=== PATIENT | female | born 2000 | race African-American/Black ===

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

== ENCOUNTER 2023-11-16 10:12 | Day surgery (SDC) | payer BC, MEDICAID ==
[~2023-11-16] VITALS: Ht 160 cm; Wt 98.3 kg
[2023-11-16] VITALS (8 sets, daily range): BP systolic 123–146; BP diastolic 71–91; PULSE 100–110; TEMP 98–98.6
[2023-11-16] MEDS ORDERED: NEXPLANON68 MG ID (10:42)
[2023-11-16 11:08] LABS: HEMATOCRIT 42.3 % (37.0-47.0); HEMOGLOBIN 14.5 g/dl (12.5-16.0); MEAN CELL VOLUME 77 fl (80.0-100.0); MEAN CORPUSCULAR HEMOGLOBIN 26 pg (27-31); MEAN CORPUSCULAR HGB CONC 34 g/dl (33.0-37.0); MEAN PLATELET VOLUME 8.6 fl (7.4-10.4); PLATELET COUNT 379 K/mm3 (130-400); REDCELL DISTRIBUTION WIDTH-CV 12.5 % (11.5-14.5)
[2023-11-16 11:23] LABS: ALBUMIN 3.7 gm/dL (3.5-5.0); BILIRUBIN,TOTAL 0.5 mg/dL (0.2-1.2); CALCIUM 9.7 mg/dL (8.4-10.2); CREATININE, serum 0.82 mg/dL (0.57-1.11); POTASSIUM 3.9 mmol/L (3.5-4.5); TOTAL PROTEIN 7.7 gm/dL (6.2-8.1)
[2023-11-16] MEDS ORDERED: MOTRIN 600600 MG/TAB PO (13:50)
[2023-11-16] MEDS ORDERED: NORCO 325 MG-51 TAB PO (13:50)
--- NOTE | 2023-11-16 17:12 | NUR ---
1442: REPORT RECEIVED FROM [employer]INE [employer]. PATIENT TO BAY 7 PER CART FROM PACU. VS OBTAINED AND STABLE. 5 INCISIONS NOTED TO ABD. INCISIONS ARE C/D/I. NO DRAINAGE NOTED. PATIENT ALERT AND ORIENTED. PATIENT STATED THAT PAIN IS TOLERABLE AT 3/10. NO C/O NAUSEA. ICE CHIPS GIVEN AT THIS TIME. WARM BLANKET PROVIDED. RESTING IN COT. CALL LIGHT IN REACH. FAMILY AT BEDSIDE. 1457: PATIENT REMAINS ALERT AND ORIENTED. VSS. INCISION REMAIN C/D/I. PATIENT CONTINUES TO STATE PAIN IS TOLERABLE AT 3/10. PATIENT TOLERATING ICE CHIPS WITH NO C/O NAUSEA. PATIENT DOES NOT WANT TO ADVANCE DIET AT THIS TIME AND CONTINUES TO TOLERATE ICE CHIPS. WARM BLANKET PROVIDED. NO FURTHER NEEDS NOTED. RESTING IN COT. CALL LIGHT IN REACH. FAMILY AT BEDSIDE. 1512: PATIENT REMAINS ALERT AND ORIENTED. VSS. PATIENT CONTINUES TO STATE PAIN IS TOLERABLE. CONTINUES TO TOLERATE ICE CHIPS WITH NO C/O NAUSEA. PATIENT ADVANCED DIET TO SPRITE. NO FURTHER NEEDS NOTED. RESTING IN COT. CALL LIGHT IN REACH. FAMILY AT BEDSIDE. 1542: PATIENT REMAINS ALERT AND ORIENTED. VSS. PATIENT RATING PAIN 5/10. TOLERATING SPRITE WITH NO C/O NAUSEA. REQUESTING TO ADVANCE HER DIET TO CRACKERS. COOL WASH CLOTH PROVIDED. NO FURTHER NEEDS NOTED. RESTING IN COT. CALL LIGHT IN REACH. FAMILY AT BEDSIDE. 1550: SALTINE CRACKERS GIVEN AT THIS TIME. 1555: PATIENT TOLERATING SALTINE CRACKERS AND REQUESTING PAIN MEDICATION AT THIS TIME. 1605: PATIENT ALERT AND ORIENTED. VSS. PRN PAIN MEDICATION GIVEN ORDERED FOR PAIN. ABD INCISIONS REMAIN C/D/I. NO C/O NAUSEA. NO FURTHER NEEDS NOTED. RESTING IN COT. CALL LIGHT IN REACH. FAMILY AT BEDSIDE. 1625: IV DC'D AT THIS TIME. 1630: PATIENT AMBULATED TO BATHROOM WITH STANDY-BY ASSIST. 1640: PATIENT BACK FROM BATHROOM WITH STANDY-BY ASSIST. PATIENT STATED SHE DID URINATE. TEMP 98.4. PATIENT STATED PAIN IS TOLERABLE. DRESSING WITH ASSISTANCE FROM MOM. 1650: DISCHARGE EDUCATION COMPLETED AT THIS TIME. PATIENT STATED UNDERSTANDING OF HOME AND FOLLOW-UP CARE. DISCHARGE PAPERWORK GIVEN TO PATIENT. 1655: PATIENT OFF UNIT AT THIS TIME PER WHEELCHAIR. PATIENT DISCHARGED TO HOME WITH FAMILY PER PERSONAL VEHICLE.
== END 2023-11-16 16:55 | disposition home or self-care (01) ==
LOC: SDCO 10:12
PROVIDERS: Surgery
DX: K82.8 Other specified diseases of gallbladder (principal); E66.9 Obesity, unspecified; Z68.39 Body mass index [BMI] 39.0-39.9, adult
CPT/HCPCS: J0690; J1100; J1170; J1885; J2405; J2704; J3010; J7120